=== PATIENT | male | born 1940 | race Caucasian/White ===

== ENCOUNTER → 2016-07-22 | Day surgery (SDC) | payer MEDICARE, MEDICAID ==
[~2016-07-22] VITALS: Ht 167.6 cm; Wt 90.7 kg
[~2016-07-22] MED LIST: ASPIRIN LO-DOSE81 MG PO; BENADRYL25 MG PO; FLOMAX0.4 MG PO; HYDROCODON-ACE1 EAC4 PO; LISINOPRIL-HCT1 EAC2 PO; MULTI VITAMIN1 EACH PO; MYRBETRIQ50 MG PO; POTASSIUM99 M1 PO; PROSCAR5 MG PO; PROVENTIL OR V6.7 GM INH; TYLENOL EXTRA500 MG PO; VITAMIN B COMP1 EACH PO; VOLTAREN75 MG PO; WELLBUTRIN SR150 MG PO
--- NOTE | ~2016-07-22 | OR ---
PATIENT'S NAME: MARLEY JOHNSON [facility] AGE: 75 Y [address] ROOM: [place] [address] [place] [facility] [place]: 07/22/2016 OR/Procedure Report DISCHARGE DATE: FAMILY PHYSICIAN: Dwight Virk MD ATTENDING PHYSICIAN: Tima Casey SURGEON: Tima Casey MD ELECTRICIAN BUS: DATE OF PROCEDURE: 07/22/2016 PREOPERATIVE DIAGNOSIS: History of urothelial carcinoma with carcinoma in situ with recent changes on the surveillance cystoscopy as well as abnormal cytology. POSTOPERATIVE DIAGNOSIS: History of urothelial carcinoma with carcinoma in situ with recent changes on the surveillance cystoscopy as well as abnormal cytology with pathology pending. PROCEDURES: 1. Cystoscopy and retrograde. 2. TURBT. ANESTHESIA: Sedation. INDICATION: This is a 75-year-old gentleman with a long history of urothelial carcinoma. He has had low grade, low stage papillary disease, but he has also had carcinoma in situ. His smoking is his major risk factor. For number of years, he was smoking three packs a day. He has cut that back to two packs a day currently. He presents this time for upper tract evaluation and resection of the erythematous areas on surveillance cystoscopy. He has also had a history of BPH, he had a transurethral resection last year. DESCRIPTION OF PROCEDURE: Having obtained his informed consent, the patient was taken to the operating room. He was prepped and draped sterilely and in lithotomy position. IV sedation was administered. A 21-Greek cystoscope was assembled and guided into the urethra. The course the urethra unremarkable back to the prostatic urethra which demonstrates his prior TUR defect. Moving on the bladder, we find a lot of scarring and two main flat erythematous areas behind the left trigone and towards the dome. The right orifice was distorted there from previous resections. The left orifice was unremarkable. Bladder examination was confirmed by the 70-degree lens. Preliminary survey was undertaken. Bowel gas pattern was unremarkable. Soft tissue outlines were within normal limits. Contrast was instilled bilaterally. He has no obstructive changes. Calyces are finely cupped. Does have a compound calyx at the top of the right collecting system. Otherwise, the upper tracts were unremarkable on the retrograde evaluation. PATIENT'S NAME: MARLEY JOHNSON [facility] AGE: 75 Y [address] ROOM: [place], [place] [id number] [place] [facility] [place]: 07/22/2016 OR/Procedure Report DISCHARGE DATE: FAMILY PHYSICIAN: Dwight Virk MD ATTENDING PHYSICIAN: Tima Casey The resectoscope was now placed. Using the loop, I resected areas on the left side behind the orifice and also with the dome. Mica Paster tissue was sent to Pathology. I then passed the rollerball and cauterized the resection sites as well as all of the tissue around it. At the conclusion, we have good hemostasis. The bladder was drained. The case was concluded. The patient tolerated the procedure well. Blood loss was negligible. The above-noted specimens were sent. The patient returned to Recovery in awake and stable condition. TIMA CASEY MD SF/modl /[id number] CC: Dwight Virk MD d: 07/22/16 1626 t: 07/23/16 0944, OPERATIVE SUMMARY
--- NOTE | ~2016-07-22 | HP ---
PATIENT'S NAME: GABRIEL JOHNSON [facility] AGE: 75 Y [address] ROOM: [place] [address] LOCATION: [facility] [place] ADMIT DATE: 07/22/2016 History & Physical DISCHARGE DATE: FAMILY PHYSICIAN: Dwight Virk MD ATTENDING PHYSICIAN: Lino Casey DATE OF SERVICE: The patient will be in on Friday, the . CHIEF COMPLAINT: Follow up bladder cancer. HISTORY OF PRESENT ILLNESS: This is a 75-year-old gentleman with a long history of urothelial carcinoma. It started in 2011 with a low-grade, low-stage disease. He has had extensive followup as well as intravesical therapy. He has subsequently been diagnosed with carcinoma in situ. His papillary tumors have consistently been low-grade and noninvasive. He also has significant BPH. He underwent a 19 g resection in September 2015. He is doing better from a voiding standpoint. Most recently, he was in for surveillance. He had some necrotic debris at the bladder neck at the 10 o'clock position, and he had an erythematous area posterior to the left orifice on the left wall. He had no definite papillary recurrence. His cytology came up as "rare, highly atypical urothelial cells present." They went on to say that "a high-grade urothelial neoplasm needs to be excluded." He, therefore, presents for cystoscopy, upper tract evaluation, and resection of the above-noted areas. PAST MEDICAL HISTORY: He has COPD. He has a very heavy smoking history and continues to smoke, that is also his main risk factor for his urothelial carcinoma. He also has hypertension. MEDICATIONS: 1. Vitamins. 2. Potassium. 3. PRN hydrocodone. 4. Lisinopril. 5. Voltaren. 6. An inhaler. ALLERGIES: NONE. REVIEW OF SYSTEMS: Gabriel denied any cardiopulmonary complaints. He is no more short of breath than usual. He has had no chest pain. With his extensive urologic history, PATIENT'S NAME: GABRIEL JOHNSON [facility] AGE: 75 Y [address] ROOM: [place], [place] [address] LOCATION: [facility] [place] ADMIT DATE: 07/22/2016 History & Physical DISCHARGE DATE: FAMILY PHYSICIAN: Dwight Virk MD ATTENDING PHYSICIAN: Lino Casey he has some frequency and nocturia as well as some postvoid dribbling. I had recently tried him on some Myrbetriq samples at 50 mg. SOCIAL HISTORY: He is single and lives in [place]. He remains fairly active. As noted, he continues to smoke. PHYSICAL EXAMINATION: GENERAL: Gabriel appears his usual pleasant self. VITAL SIGNS: As recorded. He is 203 pounds. HEART: Currently, regular. LUNGS: Breath sounds are coarse. ABDOMEN: Mild obesity. GENITOURINARY: Normal external genitalia and is otherwise as described on the cystoscopy above. EXTREMITIES: No significant clubbing, cyanosis, or edema. IMPRESSION: History of urothelial carcinoma with carcinoma in situ as outlined above. PLAN: Cystoscopy, upper tract evaluation, and transurethral resection of the above- noted areas. Having been through this on multiple occasions, Gabriel understands and wishes to proceed. I would also note that our plan had initially been to proceed with maintenance BCG therapy, having completed a 6- week course in January of 2016. That has been put on hold for this evaluation and intervention. LINO CASEY MD SF/modl /[id number] CC: Dwight Virk MD D: [id number] T: [id number] HISTORY & PHYSICAL
[2016-07-22 06:54] LABS: BASOPHIL # 0.1 K/uL (0.0-0.2); BASOPHIL % 0.4 %; EOSINOPHIL # 0.2 K/uL (0.0-0.5); EOSINOPHIL % 0.9 %; HEMATOCRIT 50.8 % (37.0-53.0); HEMOGLOBIN 17.2 g/dL (11.0-16.0); IMMATURE GRANULOCYTE # 0.3 K/uL (0.0-0.3); IMMATURE GRANULOCYTE % 1.7 %; LYMPHOCYTE # 2.7 K/uL (0.8-4.0); LYMPHOCYTE % 13.7 %; MCHC 33.9 gm/dL (32.0-36.5); MCV 94.6 fl (83.0-98.0); MONOCYTE # 1.4 K/uL (0.0-1.0); MPV 11.8 fl (9.4-12.4); NEUTROPHIL # (ANC) 14.8 K/uL (1.4-9.0); NEUTROPHIL % 76.3 %; NRBC % 0 /100WBC (0-0.00); PLATELET COUNT 163 K/uL (150-450); RBC 5.37 M/uL (3.50-5.50); RDW-CV 12.7 % (11.9-14.6)
[2016-07-22 06:57] LABS: WBC 19.4 K/uL (4.0-11.0)
[2016-07-22 07:12] LABS: ALBUMIN 3.8 gm/dL (3.5-5.0); ALK PHOS 64 IU/L (33-138); ALT 31 IU/L (12-78); ANION GAP 12.1 (10.0-19.0); AST 13 IU/L (10-40); BLOOD UREA NITROGEN 25 mg/dL (6-24); CALCIUM 9.2 mg/dL (8.5-10.5); CHLORIDE 103 mMol/L (96-110); CO2 28 mMol/L (22-32); CREATININE 1.1 mg/dL (0.6-1.3); ESTIMATED GFR (MDRD EQUATION) > 60; POTASSIUM 4.1 mMol/L (3.7-5.1); SODIUM 139 mMol/L (135-145); TOTAL BILIRUBIN 0.9 mg/dL (0.0-1.5)
== END ==
LOC: GPOC 06-26 09:00 → GSDC 07-01 06:30 → GPOC 07-16 14:00 → GSDC 06:07 → GPOC 06:30
PROVIDERS: Urology
PROC: 0TBB8ZX Excision of Bladder, Via Natural or Artificial Opening Endoscopic, Diagnostic (ICD-10-PCS; principal; 2016-07-22)
DX: N30.20 Other chronic cystitis without hematuria (principal); I10 Essential (primary) hypertension; F17.210 Nicotine dependence, cigarettes, uncomplicated; J44.9 Chronic obstructive pulmonary disease, unspecified; Z85.51 Personal history of malignant neoplasm of bladder; Z79.899 Other long term (current) drug therapy
CPT/HCPCS: J1956; J2001; J7030